=== PATIENT | male | born 1955 | race Caucasian/White ===

== ENCOUNTER 2021-02-28 11:46 | Outpatient (CLI) | payer MEDICARE, OTHER ==
[2021-02-28 13:02] LABS: Hemoglobin 14.1 g/dL (13.5-17.5); Mean Corpuscular HGB CONC 32.7 g/dL (32.0-36.0); Mean Corpuscular Hemoglobin 30.7 pg (27.0-33.0); Mean Corpuscular Volume 93.9 fl (81.2-95.1); Mean Platelet Volume 10.3 fl (7.4-10.4); Platelet Count 263 10x3/uL (150-450); RBC Distribution Width 12.4 % (11.5-14.5); Red Blood Cell (RBC) Count 4.59 10x6/uL (4.32-5.72); White Blood Cell (WBC) Count 8.6 10x3/uL (3.5-10.5)
[2021-02-28 13:30] LABS: Anion Gap 15 mmol/L (10-20); BUN (Urea Nitrogen) 15 mg/dL (8.4-25.7); Calc. Creatinine Clearance 0 mL/min (70-130); Carbon Dioxide 26 mmol/L (23-31); Chloride 105 mmol/L (98-107); Glucose 95 mg/dL (80-115); Potassium 4.2 mmol/L (3.5-5.1); Sodium 142 mmol/L (136-145)
[2021-03-01 00:24] LABS: SARS-CoV-2 PCR by NAA Not Detected (NotDetected)
== END 2021-02-28 11:47 | disposition home or self-care (01) ==
LOC: LABBT 11:46
PROVIDERS: ATTEND Student in an Organized Health Care Education/Training Program
DX: Z01.818 Encounter for other preprocedural examination (principal); M54.2 Cervicalgia; R22.1 Localized swelling, mass and lump, neck; Z20.822 Contact with and (suspected) exposure to COVID-19
CPT/HCPCS: 80048; 85027; 93005; U0003; U0005; 93010

== ENCOUNTER 2021-03-05 06:46 | Day surgery (SDC) | payer MEDICARE, OTHER ==
[2021-03-04 12:40] VITALS: BMI 26.5
[2021-03-05] MEDS ORDERED: EPINEPHrine 1 MG/ML AMP ONE (08:52)
[2021-03-05] MEDS ORDERED: Lidocaine 1% w/Epinephrine 1:100K 20 ML VIAL ONE (08:52)
[2021-03-05] MEDS ORDERED: Fentanyl 100 MCG/2 ML VIAL ONE (08:54)
[2021-03-05] MEDS ORDERED: Ondansetron PF 4 MG/2 ML Vial ONE (09:02)
[2021-03-05] MEDS ORDERED: ePHEDrine 50 MG/ML VIAL ONE (09:02)
[2021-03-05] MEDS ORDERED: Succinylcholine 200 MG/10 ml SYRINGE FS ONE (09:02)
[2021-03-05] MEDS ORDERED: Lidocaine 1% PF 5 ML VIAL ONE (09:02)
[2021-03-05] MEDS ORDERED: PROPOFOL 200 MG/20 ML VIAL ONE (09:02)
[2021-03-05] MEDS ORDERED: Esmolol 100 MG/10 ML VIAL ONE (09:02)
[2021-03-05] MEDS ORDERED: PHENYLEPHRINE-NS 100 MCG/ML 10 ML SYRINGE ONE (09:02)
[2021-03-05] MEDS ORDERED: Dexamethasone 20 MG/5 ML VIAL ONE (09:02)
[2021-03-05] MEDS ORDERED: Bacitracin Zinc Ointment 30 gm TUBE ONE (10:31)
== END 2021-03-05 12:55 | disposition home or self-care (01) ==
LOC: SDC 06:46
PROVIDERS: ATTEND Student in an Organized Health Care Education/Training Program
PROC: 0CJS8ZZ Inspection of Larynx, Via Natural or Artificial Opening Endoscopic (ICD-10-PCS; principal; 2021-03-05)
PROC: 0JB50ZZ Excision of Left Neck Subcutaneous Tissue and Fascia, Open Approach (ICD-10-PCS; 2021-03-05)
PROC: 0JB50ZZ Excision of Left Neck Subcutaneous Tissue and Fascia, Open Approach (ICD-10-PCS; 2021-03-05)
DX: C82.11 Follicular lymphoma grade II, lymph nodes of head, face, and neck (principal); M54.2 Cervicalgia; I10 Essential (primary) hypertension; Z79.82 Long term (current) use of aspirin; Z79.899 Other long term (current) drug therapy
CPT/HCPCS: 88184; 88304; 88307; 88323; 88341; 88342; 88360; J0171; J1100; J2405; J2704; J3010; J3490

== ENCOUNTER 2021-04-04 08:11 | Outpatient (CLI) | payer MEDICARE, OTHER | END 2021-04-04 08:12 | disposition home or self-care (01) | LOC: PET 08:11 | PROVIDERS: ATTEND Internal Medicine Hematology & Oncology | DX: C82.11 Follicular lymphoma grade II, lymph nodes of head, face, and neck (principal) | CPT/HCPCS: 78815; A9552 ==